=== PATIENT | female | born 1965 | race Caucasian/White ===

== ENCOUNTER 2022-08-22 11:49 | Outpatient (CLI) | payer OTHER | END 2022-08-22 12:10 | disposition home or self-care (01) | LOC: MAMO-SONO 11:49 | PROVIDERS: ATTEND Obstetrics & Gynecology | DX: N60.11 Diffuse cystic mastopathy of right breast (principal); N60.12 Diffuse cystic mastopathy of left breast ==

== ENCOUNTER 2023-06-12 07:06 | Outpatient (CLI) | payer OTHER | END 2023-06-12 08:10 | disposition home or self-care (01) | LOC: SONOGRAMA 07:06 | DX: R94.5 Abnormal results of liver function studies (principal) ==

== ENCOUNTER 2023-06-14 08:06 | Outpatient (CLI) | payer OTHER | END 2023-06-14 08:07 | disposition home or self-care (01) | LOC: TOM 08:06 | DX: R19.5 Other fecal abnormalities (principal); Z12.4 Encounter for screening for malignant neoplasm of cervix ==